=== PATIENT | female | born 1980 | race Two or more races ===

== ENCOUNTER 2023-04-20 07:27 | Day surgery (SDC) | payer OTHER ==
[~2023-04-20] VITALS: Ht 160 cm; Wt 68.5 kg
[~2023-04-20 07:27] MED LIST: ALLEGRA ALLERGY60 MG PO
== END 2023-04-20 20:05 | disposition home or self-care (01) ==
LOC: CIR.AMB 07:27
PROVIDERS: ATTEND Obstetrics & Gynecology
DX: D06.9 Carcinoma in situ of cervix, unspecified (principal); N93.8 Other specified abnormal uterine and vaginal bleeding; N84.0 Polyp of corpus uteri; Z88.0 Allergy status to penicillin; R10.2 Pelvic and perineal pain; Z20.822 Contact with and (suspected) exposure to COVID-19